=== PATIENT | male | born 1975 | race Asian ===

== ENCOUNTER 2018-12-30 09:46 | Day surgery (SDC) | payer BC ==
[2018-12-25 12:01] VITALS: BMI 23.2
[2018-12-30] MEDS ORDERED: LIDOCAINE HCL/PF 2% SDV 5ML VIAL ONE (11:12)
[2018-12-30] MEDS ORDERED: PROPOFOL 20 ML ONE (11:12)
[2018-12-30 12:05] VITALS: TEMP 98.8
[2018-12-30 12:34] VITALS: BP 106/62; PULSE 68
--- NOTE | 2019-01-01 15:30 | PATH ---
Surgical Pathology Report Patient Name: JILL MORENO [facility] Rec. #: [id number] /Age/Gender: 1975 (Age: 43) / M Account: [id number] Location: [facility] Taken: 12/30/2018 Received: 12/30/2018 Reported: 01/01/2019 Physicians: Tomasa Montanez M.D. Specimen(s) Received A: BX SECOND PORTION DUODENUM B: BX GASTRIC ANTRUM C: BX GE JUNCTION Clinical History Abdominal pain Postoperative diagnosis: Gastritis Final Diagnosis A. SECOND PORTION DUODENUM, BIOPSY: DUODENAL MUCOSA WITH NO PATHOLOGIC FINDINGS. B. GASTRIC ANTRUM, BIOPSY: MILD CHRONIC GASTRITIS. IMMUNOSTAIN IS NEGATIVE FOR H. PYLORI ORGANISMS. C. GE JUNCTION, BIOPSY: COLUMNAR (GASTRIC CARDIA-TYPE) MUCOSA SHOWING MILD CHRONIC INFLAMMATION. NEGATIVE FOR INTESTINAL METAPLASIA. NO ESOPHAGEAL (SQUAMOUS) MUCOSA IS IDENTIFIED. Electronically Signed Karina Brown M.D. Gross Description A. Received in formalin, labeled "biopsy second portion of duodenum" is a chapa, irregular portion of soft tissue measuring 0.5 cm. in greatest dimension. The specimen is submitted in toto in one cassette. B. Received in formalin, labeled "biopsy gastric antrum" is a chapa, irregular portion of soft tissue measuring 0.2 cm. in greatest dimension. The specimen is submitted in toto in one cassette. C. Received in formalin, labeled "biopsy GE junction" is a chapa, irregular portion of soft tissue measuring 0.3 cm. in greatest dimension. The specimen is submitted in toto in one cassette. 12/31/2018 saudi12/31/2018
== END 2018-12-30 12:25 | disposition home or self-care (01) ==
LOC: FASU-ENDO 09:46
PROVIDERS: ATTEND Internal Medicine Gastroenterology
PROC: 0DB48ZX Excision of Esophagogastric Junction, Via Natural or Artificial Opening Endoscopic, Diagnostic (ICD-10-PCS; 2018-12-30)
PROC: 0DB98ZX Excision of Duodenum, Via Natural or Artificial Opening Endoscopic, Diagnostic (ICD-10-PCS; principal; 2018-12-30 11:25)
PROC: 0DB68ZX Excision of Stomach, Via Natural or Artificial Opening Endoscopic, Diagnostic (ICD-10-PCS; 2018-12-30 11:25)
DX: K29.50 Unspecified chronic gastritis without bleeding (principal); K22.8 Other specified diseases of esophagus; R10.9 Unspecified abdominal pain
CPT/HCPCS: 88305-TC; 88342-TC

== ENCOUNTER 2023-06-22 11:44 | Emergency (ER) | payer BC ==
[2023-06-22 11:53] VITALS: BP 133/86; PULSE 100; RESP 18; TEMP 98.7; BMI 25.8
[2023-06-22] MEDS ORDERED: LIDOCAINE 5% TOPICAL PATCH TP ONE (12:31)
[2023-06-22] MEDS ORDERED: IBUPROFEN 400 MG TABLET (FP) PO ONE ×2 (12:31→12:48)
[2023-06-22] MEDS ORDERED: LIDOCAINE 4% PATCH TP ONE (12:48)
[2023-06-22 13:17] LABS: BASO % 0.3 % (0-2.0); EOS % 0.8 % (0-4.5); HEMATOCRIT 42.9 % (35.4-49); HEMOGLOBIN 15.2 GM/dL (11.7-16.9); MCH 31.9 pg (25.7-33.7); MCHC 35.5 g/dl (32.0-35.9); MEAN CELL VOLUME 89.8 fl (80-96); MEAN PLT VOLUME 7.9 fl (7.5-11.1); MONO % 12.5 % (3.8-10.2); NEUT % 76.4 % (42.8-82.8); PLATELET COUNT 117 10^3/uL (134-434); RBC 4.78 M/mm3 (4.00-5.60); RDW 12.5 % (11.9-15.9); WHITE BLOOD COUNT 4.9 K/mm3 (4.0-10.0)
[2023-06-22 13:47] LABS: POTASSIUM 4.2 mmol/L (3.5-5.1)
[2023-06-22 13:49] LABS: CALCIUM 8.8 mg/dL (8.5-10.1)
[2023-06-22 13:50] LABS: ALBUMIN 3.5 g/dl (3.4-5.0); BLOOD UREA NITROGEN 21.2 mg/dL (7-18)
[2023-06-22 13:54] LABS: BILIRUBIN,TOTAL 2.1 mg/dL (0.2-1)
[2023-06-22] MEDS ORDERED: LIDOCAINE PATCH REMOVAL MC ONE (22:00)
== END 2023-06-22 14:50 | disposition home or self-care (01) ==
LOC: JER 11:44
DX: M54.2 Cervicalgia (principal); R20.2 Paresthesia of skin; R53.1 Weakness; R53.83 Other fatigue; D69.6 Thrombocytopenia, unspecified; Z20.822 Contact with and (suspected) exposure to COVID-19
CPT/HCPCS: 0241U-QW; 36415; 80053; 85025; 93005; 93010; 99284-25

== ENCOUNTER 2023-08-15 12:28 | Day surgery (SDC) | payer BC ==
[2023-08-11 15:50] VITALS: BMI 25.8
[2023-08-15 14:16] VITALS: TEMP 98
[2023-08-15 14:20] VITALS: BP 113/67; PULSE 78; RESP 19
== END 2023-08-15 14:25 | disposition home or self-care (01) ==
LOC: FASU-ENDO 12:28
PROVIDERS: ATTEND Internal Medicine Gastroenterology
PROC: 0DJD8ZZ Inspection of Lower Intestinal Tract, Via Natural or Artificial Opening Endoscopic (ICD-10-PCS; principal; 2023-08-15 13:23)
DX: Z12.11 Encounter for screening for malignant neoplasm of colon (principal); K64.0 First degree hemorrhoids